=== PATIENT | female | born 1955 | race Caucasian/White ===

== ENCOUNTER 2022-11-09 09:00 | Outpatient (RCR) | payer MEDICARE, OTHER, SELFPAY | END 2023-01-18 13:02 | disposition home or self-care (01) | LOC: HO.PT 09:00 | PROVIDERS: PCP Internal Medicine; Visit Provider Obstetrics & Gynecology | DX: N81.11 Cystocele, midline (principal) | CPT/HCPCS: 97112; 97140; 97162 ==